=== PATIENT | male | born 1935 | race Caucasian/White ===

== ENCOUNTER 2017-07-25 11:45 | Day surgery (SDC) | payer MEDICARE, OTHER ==
[~2017-07-25] VITALS: Ht 182.9 cm; Wt 91.4 kg
[2017-07-25 12:12] VITALS: BP 106/63
[2017-07-25] MEDS ORDERED: APIX2.5T PO (12:26)
[2017-07-25] MEDS ORDERED: METO50TA82 PO (12:26)
[2017-07-25] MEDS ORDERED: DIGO125T PO (12:26)
[2017-07-25] MEDS ORDERED: PROPOFOL 10 MG/ML, 20ML ONE (13:18)
[2017-07-25] MEDS ORDERED: METOPROLOL TARTRATE 50 MG TABLET PO SCH (21:00)
[2017-07-25] MEDS ORDERED: APIXABAN 2.5 MG TABLET PO SCH (21:00)
[2017-07-26] MEDS ORDERED: DIGOXIN 0.125 MG TABLET PO SCH (09:00)
== END 2017-07-25 15:09 ==
LOC: CACL 11:45
PROVIDERS: ATTEND Internal Medicine Cardiovascular Disease
DX: I48.91 Unspecified atrial fibrillation (principal); E03.9 Hypothyroidism, unspecified
CPT/HCPCS: 92960; J2704

== ENCOUNTER → 2017-07-30 | Outpatient (CLI) | payer MEDICARE, OTHER ==
[~2017-07-30] MED LIST: APIX2.5T PO; DIGO125T PO; METO50TA82 PO
== END | disposition home or self-care (01) ==
LOC: CVU 07:41
PROVIDERS: ATTEND Internal Medicine Cardiovascular Disease
DX: Z01.810 Encounter for preprocedural cardiovascular examination (principal); I08.1 Rheumatic disorders of both mitral and tricuspid valves; I48.91 Unspecified atrial fibrillation
CPT/HCPCS: 93306

== ENCOUNTER → 2017-07-31 | Outpatient (CLI) | payer MEDICARE, OTHER ==
[~2017-07-31] MED LIST changes: +REGADENOSON 0.4 MG/5 ML SYRINGE ONE
== END | disposition home or self-care (01) ==
LOC: CFH 08:35
PROVIDERS: ATTEND Internal Medicine Cardiovascular Disease
DX: Z01.810 Encounter for preprocedural cardiovascular examination (principal); I48.91 Unspecified atrial fibrillation
CPT/HCPCS: 78452; 93017; A9502; J2785

== ENCOUNTER 2017-09-08 17:23 | Inpatient (IN) | payer MEDICARE, OTHER ==
[~2017-09-08] VITALS: Ht 182.9 cm; Wt 93.4 kg
[~2017-09-08 17:23] MED LIST changes: -REGADENOSON 0.4 MG/5 ML SYRINGE ONE
[2017-09-08 17:58] VITALS: BP 112/74
[2017-09-08] MEDS ORDERED: [UNRECOGNIZED DRUG - OTHER] PO (18:11)
[2017-09-08] MEDS ORDERED: RED600CA2 PO (18:11)
[2017-09-08] MEDS ORDERED: METH10TA6 PO (18:11)
[2017-09-08] MEDS ORDERED: SAW/1TAB2 PO (18:11)
[2017-09-08] MEDS ORDERED: GLUC500C2 PO (18:11)
[2017-09-08] MEDS ORDERED: CHON250C PO (18:11)
[2017-09-08] MEDS ORDERED: ERGO500017 PO (18:11)
[2017-09-08] MEDS ORDERED: CYAN500T2 PO (18:11)
[2017-09-08] MEDS ORDERED: PYRI100T2 PO (18:11)
[2017-09-08] MEDS ORDERED: SODIUM CHLORIDE 0.9% 1,000 ML IV SCH ×2 (18:30→19:35)
[2017-09-08 18:46] LABS: ANION GAP 7 mmol/L (5-15); CHLORIDE 104 mmol/L (98-107); CHOLESTEROL, TOTAL 122 mg/dL (140-239); CREATININE 1.56 mg/dL (0.7-1.3)
[2017-09-08 18:50] LABS: CHOL/HDL RATIO 2.5; HDL CHOL % 40 % (26-37); HDL CHOLESTEROL (DIRECT) 49 mg/dL (40-60); LDL CHOLESTEROL,CALCULATED 58 mg/dL (54-169); LDL/HDL RATIO 1.2 (0.5-3.0); TRIGLYCERIDES 73 mg/dL (50-200); TROPONIN I 0.059 ng/mL (0.000-0.045); VLDL CHOLESTEROL 15 mg/dL (0-25)
[2017-09-08 18:53] VITALS: BP 115/68
[2017-09-08 18:56] LABS: THYROID STIMULATING HORMONE 0.415 mIU/L (0.358-3.740)
[2017-09-08] MEDS: SODIUM CHLORIDE FLUSH 10ML SYR IVF SCH (22:36)
[2017-09-09 00:21] LABS: TROPONIN I 0.052 ng/mL (0.000-0.045)
[2017-09-09 03:06] VITALS: BP 111/68
[2017-09-09] MEDS ORDERED: ACETAMINOPHEN 325 MG TABLET PO PRN ×2 (03:30→12:00)
[2017-09-09] MEDS ORDERED: LABETALOL 5MG/ML, 20ML IVPush PRN (03:30)
[2017-09-09 05:29] VITALS: BP 95/62
[2017-09-09] MEDS ORDERED: METOPROLOL TARTRATE 50 MG TABLET PO SCH (06:00)
[2017-09-09 06:22] LABS: TROPONIN I 0.064 ng/mL (0.000-0.045)
[2017-09-09 06:50] VITALS: BP 91/57
[2017-09-09] MEDS: SODIUM CHLORIDE 0.9% 1,000 ML IV SCH (08:48)
[2017-09-09] MEDS: SODIUM CHLORIDE FLUSH 10ML SYR IVF SCH ×3 (08:48→21:56)
[2017-09-09] MEDS ORDERED: DIGOXIN 0.125 MG TABLET PO SCH (09:00)
[2017-09-09] MEDS ORDERED: FENTANYL PF 100 MCG/2ML ONE (10:17)
[2017-09-09] MEDS ORDERED: LIDOCAINE 2%, 20ML ONE (10:17)
[2017-09-09] MEDS ORDERED: CEFAZOLIN PMX 1GM/50ML 50 ML ONE (10:17)
[2017-09-09] MEDS ORDERED: MIDAZOLAM 1 MG/ML, 2ML ONE (10:17)
[2017-09-09] MEDS ORDERED: CEFAZOLIN 1,000 MG ONE (10:18)
[2017-09-09 12:21] VITALS: BP 122/84
[2017-09-09] MEDS ORDERED: ONDANSETRON 2MG/ML, 2ML ONE (12:30)
[2017-09-09] MEDS ORDERED: ONDANSETRON 2MG/ML, 2ML IVPush PRN (13:00)
[2017-09-09] MEDS ORDERED: METOPROLOL TARTRATE 25 MG TABLET ONE (17:16)
[2017-09-09] MEDS: METOPROLOL TARTRATE 25 MG TABLET PO SCH (17:21)
[2017-09-09] MEDS ORDERED: FUROSEMIDE 40 MG/4 ML IV ONE (17:30)
[2017-09-09] MEDS ORDERED: AZITHROMYCIN 500 MG TABLET PO ONE (17:30)
[2017-09-09 17:44] LABS: RAPID INFLUENZA A POSITIVE (Negative)
[2017-09-09 17:48] LABS: RAPID INFLUENZA B Negative (Negative)
[2017-09-09] MEDS ORDERED: SODIUM CHLORIDE 0.9% 1,000 ML IV SCH (18:30)
[2017-09-09 18:31] VITALS: BP 105/67
[2017-09-09] MEDS: OSELTAMIVIR 30 MG CAPSULE PO SCH (21:55)
[2017-09-09] MEDS: CEFAZOLIN PMX 1GM/50ML 50 ML IVPB SCH (21:56)
[2017-09-10] MEDS: SODIUM CHLORIDE 0.9% 1,000 ML IV SCH (02:30)
[2017-09-10 03:31] VITALS: BP 103/69
[2017-09-10 06:13] LABS: MEAN CORPUSCULAR HGB CONC 33.6 g/dL (33.2-36.2); MEAN CORPUSCULAR VOLUME 86.1 fL (81-97); PLATELET COUNT 104 x10^3/uL (130-400); RED BLOOD COUNT 5.44 x10^6/uL (4.38-5.82); RED CELL DISTRIBUTION WIDTH 16.7 % (9.4-14.8)
[2017-09-10] MEDS: METOPROLOL TARTRATE 25 MG TABLET PO SCH ×2 (06:15→17:22)
[2017-09-10] MEDS: CEFAZOLIN PMX 1GM/50ML 50 ML IVPB SCH (06:17)
[2017-09-10 06:30] LABS: CHLORIDE 106 mmol/L (98-107)
[2017-09-10 06:35] LABS: ANION GAP 9 mmol/L (5-15); BASOPHILS # (AUTO) 0.01 x10^3/uL (0-0.1); BASOPHILS % (AUTO) 0 % (0-1); CALCIUM 7.9 mg/dL (8.5-10.1); CREATININE 1.28 mg/dL (0.7-1.3); EOSINOPHILS # (AUTO) 0.01 x10^3/uL (0-0.4); EOSINOPHILS % (AUTO) 0 % (1-7); LYMPHOCYTES # (AUTO) 1.31 x10^3/uL (1-3.4); LYMPHOCYTES % (AUTO) 13 % (22-44); MD SCAN; MONOCYTES # (AUTO) 1.52 x10^3/uL (0.2-0.8); MONOCYTES % (AUTO) 16 % (2-9); NEUTROPHILS # (AUTO) 6.91 x10^3/uL (1.8-6.8); NEUTROPHILS % (AUTO) 71 % (42-75)
[2017-09-10 06:55] VITALS: BP 113/71
[2017-09-10] MEDS: SODIUM CHLORIDE FLUSH 10ML SYR IVF SCH ×4 (09:00→20:46)
[2017-09-10] MEDS: OSELTAMIVIR 30 MG CAPSULE PO SCH ×2 (09:33→21:51)
[2017-09-10 13:26] VITALS: BP 117/72
[2017-09-10 18:56] VITALS: BP 126/78
[2017-09-10] MEDS: APIXABAN 2.5 MG TABLET PO SCH (20:44)
[2017-09-10] MEDS ORDERED: APIXABAN 5 MG TABLET PO SCH (21:00)
[2017-09-10] MEDS ORDERED: APIXABAN 2.5 MG TABLET PO SCH (21:00)
[2017-09-11 01:27] VITALS: BP 112/67
[2017-09-11] MEDS: METOPROLOL TARTRATE 25 MG TABLET PO SCH ×2 (05:32→17:44)
[2017-09-11 06:55] VITALS: BP 98/61
[2017-09-11] MEDS: SODIUM CHLORIDE FLUSH 10ML SYR IVF SCH ×4 (09:00→19:53)
[2017-09-11] MEDS: AZITHROMYCIN 500 MG TABLET PO SCH (09:22)
[2017-09-11] MEDS: OSELTAMIVIR 30 MG CAPSULE PO SCH ×2 (09:22→19:52)
[2017-09-11] MEDS: APIXABAN 2.5 MG TABLET PO SCH ×2 (09:22→19:52)
[2017-09-11 13:55] VITALS: BP 115/74
[2017-09-11 20:11] VITALS: BP 120/73
[2017-09-12 01:07] VITALS: BP 121/71
[2017-09-12] MEDS: METOPROLOL TARTRATE 25 MG TABLET PO SCH (05:36)
[2017-09-12 06:43] VITALS: BP 107/74
[2017-09-12] MEDS: SODIUM CHLORIDE FLUSH 10ML SYR IVF SCH ×2 (08:05)
[2017-09-12] MEDS: AZITHROMYCIN 500 MG TABLET PO SCH (08:05)
[2017-09-12] MEDS: APIXABAN 2.5 MG TABLET PO SCH (08:05)
[2017-09-12] MEDS: OSELTAMIVIR 30 MG CAPSULE PO SCH (08:06)
[2017-09-12 08:46] VITALS: BP 112/66
[2017-09-12] MEDS ORDERED: OSEL30CA PO (11:42)
[2017-09-12] MEDS ORDERED: ACET325T14 PO (11:42)
[2017-09-12] MEDS ORDERED: METO25TA35 PO (11:42)
[2017-09-12] MEDS ORDERED: APIX2.5T PO (11:42)
== END 2017-09-12 15:59 | disposition home or self-care (01) | DRG 242 ==
LOC: 5SO 17:35
PROVIDERS: ADMIT Internal Medicine Cardiovascular Disease; ATTEND Hospitalist
PROC: 02583ZZ Destruction of Conduction Mechanism, Percutaneous Approach (ICD-10-PCS; principal; 2017-09-09)
PROC: 0JH606Z Insertion of Pacemaker, Dual Chamber into Chest Subcutaneous Tissue and Fascia, Open Approach (ICD-10-PCS; 2017-09-09)
PROC: 02H63JZ Insertion of Pacemaker Lead into Right Atrium, Percutaneous Approach (ICD-10-PCS; 2017-09-09)
PROC: 02HK3JZ Insertion of Pacemaker Lead into Right Ventricle, Percutaneous Approach (ICD-10-PCS; 2017-09-09)
DX: I48.91 Unspecified atrial fibrillation (principal); I50.43 Acute on chronic combined systolic (congestive) and diastolic (congestive) heart failure; D68.59 Other primary thrombophilia; R54 Age-related physical debility; E07.9 Disorder of thyroid, unspecified; J10.1 Influenza due to other identified influenza virus with other respiratory manifestations
CPT/HCPCS: 33207; 36415; 71045; 71046; 80048; 80061; 83880; 84439; 84443; 84484; 85014; 85018; 85025; 86850; 86900; 87400; 93005; 93650; 99156; 99157; C1779; C1786; C1892; C1894; J0690; J1940; J2250; J3010; J3490; C2630; J7030